=== PATIENT | male | born 1990 | race Hispanic/Latino ===

== ENCOUNTER 2022-03-26 20:17 | Emergency (ER) | payer OTHER ==
[~2022-03-26] VITALS: Ht 175.3 cm; Wt 81.6 kg
[2022-03-26] MEDS ORDERED: KETOROLAC 30MG VIAL (30MG/ML) IM ONE ×2 (21:30→22:30)
[2022-03-26 21:45] VITALS: BP 140/79
[2022-03-26] MEDS ORDERED: IBUP-2070 PO (22:17)
== END 2022-03-26 22:35 | disposition home or self-care (01) ==
LOC: EDH 20:17
DX: S49.91XA Unspecified injury of right shoulder and upper arm, initial encounter (principal); X50.1XXA Overexertion from prolonged static or awkward postures, initial encounter; Y93.89 Activity, other specified; Y92.89 Other specified places as the place of occurrence of the external cause; Y99.8 Other external cause status
CPT/HCPCS: 99283; 73030; 96372; J1885